=== PATIENT | male | born 1960 | race Caucasian/White ===

== ENCOUNTER 2017-12-24 20:39 | Inpatient (IN) | payer MEDICARE, OTHER ==
[2017-12-24] MEDS: ASPIRIN 325 MG TAB PO (21:55)
[2017-12-24] MEDS: morphine 4 MG/ML VIAL IV (21:55)
[2017-12-24] MEDS: ONDANSETRON 4 MG INJ IV ×2 (21:55→23:24)
[2017-12-24 22:30] LABS: ADD MAN DIFF? NO
[2017-12-24 22:33] LABS: BASOPHILS % 0.6 % (0.0-2.0); EOSINOPHILS % 0.4 % (0.0-7.0); HEMATOCRIT 39.5 % (42.0-52.0); HEMOGLOBIN 13.1 g/dl (14.0-18.0); LYMPHOCYTES # 1.6 10^3/ul (0.8-2.9); LYMPHOCYTES % 32.1 % (15.0-51.0); MEAN CORPUSCULAR HEMOGLOBIN 29.5 pg (29.0-33.0); MEAN CORPUSCULAR HGB CONC 33.2 g/dl (32.0-37.0); MEAN PLATELET VOLUME 11.9 fl (7.4-10.4); MONOCYTE # 0.5 10^3/ul (0.3-0.9); MONOCYTES % 10.2 % (0.0-11.0); NEUTROPHIL # 2.9 10^3/ul (1.6-7.5); NEUTROPHILS % 56.5 % (39.0-77.0); PLATELET COUNT 253 10^3/UL (140-415); RED BLOOD COUNT 4.44 10^6/ul (4.70-6.10); RED CELL DISTRIBUTION WIDTH 16.3 % (11.5-14.5)
[2017-12-24 22:33] LABS: WHITE BLOOD COUNT 5.1 10^3/ul (4.8-10.8)
[2017-12-24] MEDS: CARISOPRODOL 350 MG TAB PO (22:50)
[2017-12-24 22:51] LABS: ALANINE AMINOTRANSFERASE 32 IU/L (13-69); ALBUMIN/GLOBULIN RATIO 1.47; ALKALINE PHOSPHATASE 124 IU/L (42-121); ANION GAP 24 (8-16); ASPARTATE AMINO TRANSFERASE 31 IU/L (15-46); BILIRUBIN,INDIRECT 0.7 mg/dl (0-1.1); BILIRUBIN,TOTAL 0.7 mg/dl (0.2-1.3); BLOOD UREA NITROGEN 37 mg/dl (7-20); CALCIUM 9.8 mg/dl (8.4-10.2); CARBON DIOXIDE 25 mmol/L (21-31); CHLORIDE 99 mmol/L (97-110); CREATINE KINASE 97 IU/L (23-200); CREATININE 2.38 mg/dl (0.61-1.24); GLUCOSE 77 mg/dl (70-220); LIPASE 46 U/L (23-300); POTASSIUM 4.5 mmol/L (3.5-5.1); SODIUM 143 mmol/L (135-144); TOTAL PROTEIN 8.4 g/dl (6.1-8.1)
[2017-12-24 22:53] LABS: INR 1.61; PROTIME 19.5 Sec (11.9-14.9); PT RATIO 1.5
[2017-12-24 23:00] LABS: B-TYPE NATRIURETIC PEPTIDE 2690 PG/ML (0-125); CK-MB 7.79 ng/ml (0.0-2.4)
[2017-12-24] MEDS ORDERED: ACETAMINOPHEN 325 MG TAB PO (23:00)
[2017-12-24] MEDS: HYDROmorphONE 0.5 MG/0.5 ML SYG IV (23:24)
[2017-12-25] MEDS ORDERED: DIPHENHYDRAMINE 25 MG CAP PO (01:30)
[2017-12-25] MEDS: DIPHENHYDRAMINE 50 MG CAP PO (01:54)
[2017-12-25] MEDS ORDERED: NACL 0.9% 3 ML SYG IV (05:00)
[2017-12-25] MEDS ORDERED: ALBUTEROL/IPRATROPIUM (NEB) 3 ML AMP HHN (05:00)
[2017-12-25] MEDS ORDERED: ACETAMINOPHEN 325 MG TAB PO (05:00)
[2017-12-25] MEDS: morphine 2 MG INJ IV ×3 (05:38→21:18)
[2017-12-25] MEDS: ONDANSETRON 4 MG INJ IV (05:38)
[2017-12-25] MEDS: GABAPENTIN 300 MG CAP PO ×3 (09:00→21:17)
[2017-12-25] MEDS ORDERED: VANCOMYCIN IV PER PHARMACY XX (09:00)
[2017-12-25] MEDS: ENOXAPARIN 40 MG/0.4 ML SYG SC (09:18)
[2017-12-25] MEDS: ASPIRIN 81 MG TAB PO (09:18)
[2017-12-25] MEDS: FUROSEMIDE 20 MG TAB PO ×2 (09:19→21:17)
[2017-12-25] MEDS: HYDROmorphONE 0.5 MG/0.5 ML SYG IV (09:19)
[2017-12-25] MEDS: POTASSIUM CHLORIDE (SR) 20 MEQ TAB PO (09:19)
[2017-12-25 16:29] LABS: ADD MAN DIFF? NO
[2017-12-25 16:32] LABS: WHITE BLOOD COUNT 3.8 10^3/ul (4.8-10.8)
[2017-12-25 16:32] LABS: BASOPHILS % 0.8 % (0.0-2.0); EOSINOPHILS # 0.1 10^3/ul (0.0-0.5); EOSINOPHILS % 1.6 % (0.0-7.0); HEMATOCRIT 39.3 % (42.0-52.0); HEMOGLOBIN 13.2 g/dl (14.0-18.0); LYMPHOCYTES # 1.4 10^3/ul (0.8-2.9); LYMPHOCYTES % 36.6 % (15.0-51.0); MEAN CORPUSCULAR HEMOGLOBIN 29.9 pg (29.0-33.0); MEAN CORPUSCULAR HGB CONC 33.6 g/dl (32.0-37.0); MEAN CORPUSCULAR VOLUME 88.9 fl (82.0-101.0); MEAN PLATELET VOLUME 11.6 fl (7.4-10.4); MONOCYTE # 0.5 10^3/ul (0.3-0.9); MONOCYTES % 11.8 % (0.0-11.0); NEUTROPHIL # 1.9 10^3/ul (1.6-7.5); NEUTROPHILS % 48.9 % (39.0-77.0); PLATELET COUNT 233 10^3/UL (140-415); RED BLOOD COUNT 4.42 10^6/ul (4.70-6.10); RED CELL DISTRIBUTION WIDTH 16.2 % (11.5-14.5)
[2017-12-25] MEDS: HYDROCODONE/APAP (5/325) TAB PO (16:35)
[2017-12-25 17:02] LABS: ALANINE AMINOTRANSFERASE 31 IU/L (13-69); ALBUMIN 4.8 g/dl (3.3-4.9); ALBUMIN/GLOBULIN RATIO 1.41; ALKALINE PHOSPHATASE 123 IU/L (42-121); ANION GAP 20 (8-16); ASPARTATE AMINO TRANSFERASE 32 IU/L (15-46); BILIRUBIN,INDIRECT 0.4 mg/dl (0-1.1); BILIRUBIN,TOTAL 0.4 mg/dl (0.2-1.3); BLOOD UREA NITROGEN 39 mg/dl (7-20); CALCIUM 9.5 mg/dl (8.4-10.2); CARBON DIOXIDE 24 mmol/L (21-31); CHLORIDE 102 mmol/L (97-110); CREATININE 1.53 mg/dl (0.61-1.24); GLUCOSE 70 mg/dl (70-220); PHOSPHORUS 4.1 mg/dl (2.5-4.9); POTASSIUM 4.1 mmol/L (3.5-5.1); SODIUM 142 mmol/L (135-144); TOTAL PROTEIN 8.2 g/dl (6.1-8.1)
[2017-12-25 19:13] LABS: CREATINE KINASE 47 IU/L (23-200)
[2017-12-25 19:24] LABS: CK INDEX 11.6
[2017-12-25 19:25] LABS: CK-MB 5.47 ng/ml (0.0-2.4); TROPONIN-I < 0.012 ng/ml (0.00-0.12)
[2017-12-26] MEDS: POTASSIUM CHLORIDE (SR) 20 MEQ TAB PO (09:00)
[2017-12-26] MEDS: GABAPENTIN 300 MG CAP PO ×3 (09:00→21:00)
[2017-12-26] MEDS: ASPIRIN 81 MG TAB PO (09:00)
[2017-12-26] MEDS: ENOXAPARIN 40 MG/0.4 ML SYG SC (09:00)
[2017-12-26] MEDS: FUROSEMIDE 20 MG TAB PO ×2 (09:00→21:00)
[2017-12-26 13:59] LABS: ADD MAN DIFF? NO
[2017-12-26 14:03] LABS: WHITE BLOOD COUNT 3.7 10^3/ul (4.8-10.8)
[2017-12-26 14:03] LABS: BASOPHILS % 1.1 % (0.0-2.0); EOSINOPHILS # 0.1 10^3/ul (0.0-0.5); EOSINOPHILS % 1.9 % (0.0-7.0); HEMATOCRIT 39.1 % (42.0-52.0); HEMOGLOBIN 12.6 g/dl (14.0-18.0); LYMPHOCYTES # 1.1 10^3/ul (0.8-2.9); LYMPHOCYTES % 30.4 % (15.0-51.0); MEAN CORPUSCULAR HGB CONC 32.2 g/dl (32.0-37.0); MEAN CORPUSCULAR VOLUME 90.1 fl (82.0-101.0); MEAN PLATELET VOLUME 11.6 fl (7.4-10.4); MONOCYTE # 0.4 10^3/ul (0.3-0.9); MONOCYTES % 10.3 % (0.0-11.0); NEUTROPHIL # 2.1 10^3/ul (1.6-7.5); PLATELET COUNT 215 10^3/UL (140-415); RED BLOOD COUNT 4.34 10^6/ul (4.70-6.10); RED CELL DISTRIBUTION WIDTH 15.9 % (11.5-14.5)
[2017-12-26 14:26] LABS: CHOLESTEROL 100 mg/dl (100-200)
[2017-12-26 14:26] LABS: CHOL/HDL RATIO 1.8 RATIO; HDL CHOLESTEROL 53 mg/dl (28-71); LDL CHOLESTEROL,CALCULATED 34 mg/dl; TRIGLYCERIDES 67 mg/dl (0-149)
[2017-12-26 14:32] LABS: CREATINE KINASE 54 IU/L (23-200)
[2017-12-26 14:34] LABS: ALANINE AMINOTRANSFERASE 30 IU/L (13-69); ALBUMIN 4.4 g/dl (3.3-4.9); ALBUMIN/GLOBULIN RATIO 1.37; ALKALINE PHOSPHATASE 128 IU/L (42-121); ANION GAP 18 (8-16); ASPARTATE AMINO TRANSFERASE 30 IU/L (15-46); BILIRUBIN,INDIRECT 0.5 mg/dl (0-1.1); BILIRUBIN,TOTAL 0.5 mg/dl (0.2-1.3); BLOOD UREA NITROGEN 30 mg/dl (7-20); CALCIUM 9.3 mg/dl (8.4-10.2); CARBON DIOXIDE 22 mmol/L (21-31); CHLORIDE 104 mmol/L (97-110); CREATININE 0.95 mg/dl (0.61-1.24); GLUCOSE 80 mg/dl (70-220); MAGNESIUM 1.9 mg/dl (1.7-2.5); POTASSIUM 4.1 mmol/L (3.5-5.1); SODIUM 140 mmol/L (135-144); TOTAL PROTEIN 7.6 g/dl (6.1-8.1)
[2017-12-26 14:40] LABS: CK INDEX 9.8
[2017-12-26 14:43] LABS: CK-MB 5.27 ng/ml (0.0-2.4); TROPONIN-I < 0.012 ng/ml (0.00-0.12)
[2017-12-26] MEDS: HYDROCODONE/APAP (10/325) TAB PO (22:26)
[2017-12-27] MEDS: HYDROCODONE/APAP (10/325) TAB PO ×5 (02:07→19:06)
[2017-12-27 08:46] LABS: ADD MAN DIFF? NO
[2017-12-27 08:54] LABS: WHITE BLOOD COUNT 5.4 10^3/ul (4.8-10.8)
[2017-12-27 08:54] LABS: BASOPHILS % 0.6 % (0.0-2.0); EOSINOPHILS # 0.1 10^3/ul (0.0-0.5); EOSINOPHILS % 1.5 % (0.0-7.0); HEMATOCRIT 38.5 % (42.0-52.0); HEMOGLOBIN 12.9 g/dl (14.0-18.0); LYMPHOCYTES # 1.6 10^3/ul (0.8-2.9); LYMPHOCYTES % 28.7 % (15.0-51.0); MEAN CORPUSCULAR HEMOGLOBIN 29.5 pg (29.0-33.0); MEAN CORPUSCULAR HGB CONC 33.5 g/dl (32.0-37.0); MEAN CORPUSCULAR VOLUME 88.1 fl (82.0-101.0); MEAN PLATELET VOLUME 11.5 fl (7.4-10.4); MONOCYTE # 0.5 10^3/ul (0.3-0.9); NEUTROPHIL # 3.2 10^3/ul (1.6-7.5); PLATELET COUNT 232 10^3/UL (140-415); RED BLOOD COUNT 4.37 10^6/ul (4.70-6.10); RED CELL DISTRIBUTION WIDTH 15.9 % (11.5-14.5)
[2017-12-27] MEDS: POTASSIUM CHLORIDE (SR) 20 MEQ TAB PO (09:00)
[2017-12-27] MEDS: ASPIRIN 81 MG TAB PO (09:00)
[2017-12-27] MEDS: FUROSEMIDE 20 MG TAB PO ×2 (09:00→21:00)
[2017-12-27] MEDS: ENOXAPARIN 40 MG/0.4 ML SYG SC (09:00)
[2017-12-27 09:15] LABS: ANION GAP 18 (8-16); BLOOD UREA NITROGEN 31 mg/dl (7-20); CALCIUM 9.3 mg/dl (8.4-10.2); CARBON DIOXIDE 22 mmol/L (21-31); CHLORIDE 106 mmol/L (97-110); CREATININE 1.06 mg/dl (0.61-1.24); GLUCOSE 85 mg/dl (70-220); MAGNESIUM 1.9 mg/dl (1.7-2.5); PHOSPHORUS 3.2 mg/dl (2.5-4.9); POTASSIUM 4.5 mmol/L (3.5-5.1); SODIUM 141 mmol/L (135-144)
[2017-12-27] MEDS: GABAPENTIN 300 MG CAP PO ×3 (09:36→21:23)
[2017-12-27] MEDS ORDERED: morphine 2 MG INJ IV (23:00)
[2017-12-28] MEDS: HYDROCODONE/APAP (10/325) TAB PO ×5 (00:01→16:57)
[2017-12-28] MEDS: ZOLPIDEM 5 MG TAB PO (00:01)
[2017-12-28] MEDS: GABAPENTIN 300 MG CAP PO ×3 (08:51→21:40)
[2017-12-28] MEDS: POTASSIUM CHLORIDE (SR) 20 MEQ TAB PO (08:51)
[2017-12-28] MEDS: ASPIRIN 81 MG TAB PO (08:51)
[2017-12-28] MEDS: FUROSEMIDE 20 MG TAB PO ×2 (08:52→21:43)
[2017-12-28] MEDS: ENOXAPARIN 40 MG/0.4 ML SYG SC (08:56)
[2017-12-28] MEDS: CEFAZOLIN 1 GM/50 ML (PMX) 50 ML IVPB (13:30)
[2017-12-28 21:30] LABS: PROTIME 16.4 Sec (11.9-14.9); PT RATIO 1.3
[2017-12-28] MEDS: morphine (ER) 30 MG TAB PO (21:43)
[2017-12-29] MEDS: HYDROCODONE/APAP (10/325) TAB PO ×3 (01:12→12:08)
[2017-12-29] MEDS ORDERED: CEFAZOLIN 1 GM INJ (07:00)
[2017-12-29 07:56] LABS: ADD MAN DIFF? NO
[2017-12-29] MEDS: GABAPENTIN 300 MG CAP PO ×3 (07:57→19:49)
[2017-12-29] MEDS: POTASSIUM CHLORIDE (SR) 20 MEQ TAB PO (07:57)
[2017-12-29] MEDS: ASPIRIN 81 MG TAB PO (07:57)
[2017-12-29] MEDS: FUROSEMIDE 20 MG TAB PO ×2 (07:59→19:50)
[2017-12-29] MEDS: morphine (ER) 30 MG TAB PO ×2 (08:00→19:51)
[2017-12-29 08:05] LABS: WHITE BLOOD COUNT 4.1 10^3/ul (4.8-10.8)
[2017-12-29 08:05] LABS: BASOPHILS % 0.7 % (0.0-2.0); EOSINOPHILS # 0.1 10^3/ul (0.0-0.5); EOSINOPHILS % 2.7 % (0.0-7.0); HEMATOCRIT 35.1 % (42.0-52.0); HEMOGLOBIN 11.6 g/dl (14.0-18.0); LYMPHOCYTES # 1.4 10^3/ul (0.8-2.9); MEAN CORPUSCULAR HEMOGLOBIN 29.6 pg (29.0-33.0); MEAN CORPUSCULAR VOLUME 89.5 fl (82.0-101.0); MEAN PLATELET VOLUME 11.5 fl (7.4-10.4); MONOCYTE # 0.4 10^3/ul (0.3-0.9); MONOCYTES % 10.8 % (0.0-11.0); NEUTROPHIL # 2.1 10^3/ul (1.6-7.5); NEUTROPHILS % 50.8 % (39.0-77.0); PLATELET COUNT 166 10^3/UL (140-415); RED BLOOD COUNT 3.92 10^6/ul (4.70-6.10); RED CELL DISTRIBUTION WIDTH 15.9 % (11.5-14.5)
[2017-12-29 08:47] LABS: ANION GAP 19 (8-16); BLOOD UREA NITROGEN 34 mg/dl (7-20); CALCIUM 9.3 mg/dl (8.4-10.2); CARBON DIOXIDE 22 mmol/L (21-31); CHLORIDE 106 mmol/L (97-110); CREATININE 0.88 mg/dl (0.61-1.24); GLUCOSE 84 mg/dl (70-220); POTASSIUM 3.8 mmol/L (3.5-5.1); SODIUM 143 mmol/L (135-144)
[2017-12-29] MEDS: ENOXAPARIN 40 MG/0.4 ML SYG SC (09:00)
[2017-12-29] MEDS: LISINOPRIL 5 MG TAB PO (12:10)
[2017-12-29] MEDS: CARISOPRODOL 350 MG TAB PO (12:16)
[2017-12-29] MEDS: ONDANSETRON 4 MG INJ IV ×2 (12:22→19:49)
[2017-12-29] MEDS ORDERED: MIDAZOLAM 1 MG/ML 2 ML INJ (15:45)
[2017-12-29] MEDS ORDERED: KETAMINE 500 MG INJ (15:45)
[2017-12-29] MEDS ORDERED: FENTAnyl 50 MCG/ML VIAL (15:45)
[2017-12-29] MEDS ORDERED: LIDOCAINE 1%/EPI 30 ML INJ (15:54)
[2017-12-29] MEDS ORDERED: CEFAZOLIN 2 GM/50 ML (PMX) 50 ML IVPB (15:55)
[2017-12-29] MEDS: POLYMYXIN/BACITRACIN 1L IRRIG IRR (16:00)
[2017-12-29] MEDS: CEFAZOLIN 1 GM/50 ML (PMX) 50 ML IVPB (19:49)
[2017-12-29] MEDS: morphine 2 MG INJ IV (22:24)
[2017-12-30] MEDS: CEFAZOLIN 1 GM/50 ML (PMX) 50 ML IVPB ×4 (00:03→17:20)
[2017-12-30] MEDS: HYDROCODONE/APAP (10/325) TAB PO ×4 (00:03→17:29)
[2017-12-30] MEDS: morphine 2 MG INJ IV ×2 (02:02→21:40)
[2017-12-30] MEDS: CARISOPRODOL 350 MG TAB PO ×2 (02:53→11:18)
[2017-12-30 03:53] LABS: ADD UMIC YES; UR ASCORBIC ACID NEGATIVE (NEGATIVE); UR BILIRUBIN (Dip) NEGATIVE (NEGATIVE); UR BLOOD (Dip) NEGATIVE (NEGATIVE); UR CLARITY CLEAR (CLEAR); UR COLOR YELLOW (YELLOW); UR GLUCOSE (Dip) NEGATIVE (NEGATIVE); UR KETONES (Dip) NEGATIVE (NEGATIVE); UR LEUKOCYTE ESTERASE (Dip) TRACE Leu/ul (NEGATIVE); UR NITRITE (Dip) NEGATIVE (NEGATIVE); UR RBC 1 /HPF (0-5); UR SPECIFIC GRAVITY (Dip) 1.013 (1.003-1.030); UR TOTAL PROTEIN (Dip) NEGATIVE (NEGATIVE); UR UROBILINOGEN (Dip) NEGATIVE (NEGATIVE); UR WBC 4 /HPF (0-5)
[2017-12-30 03:58] LABS: SODIUM,URINE RANDOM 89 mmol/L (30-90)
[2017-12-30] MEDS: GABAPENTIN 300 MG CAP PO ×3 (08:14→21:40)
[2017-12-30] MEDS: ASPIRIN 81 MG TAB PO (08:15)
[2017-12-30] MEDS: LISINOPRIL 5 MG TAB PO (08:16)
[2017-12-30] MEDS: POTASSIUM CHLORIDE (SR) 20 MEQ TAB PO (08:16)
[2017-12-30] MEDS: FUROSEMIDE 20 MG TAB PO ×2 (08:16→21:40)
[2017-12-30] MEDS: morphine (ER) 30 MG TAB PO ×2 (08:17→21:41)
[2017-12-30] MEDS: ENOXAPARIN 40 MG/0.4 ML SYG SC (08:42)
[2017-12-30] MEDS: TIOTROPIUM 18 MCG CAPSULE INHA DEV INH (12:23)
[2017-12-30] MEDS ORDERED: VITAMIN A & D 5 GM OINT PACKET TOP (19:47)
[2017-12-31] MEDS: CEFAZOLIN 1 GM/50 ML (PMX) 50 ML IVPB ×5 (00:41→23:45)
[2017-12-31] MEDS: DIPHENHYDRAMINE 50 MG CAP PO (05:28)
[2017-12-31] MEDS: CARISOPRODOL 350 MG TAB PO ×2 (05:28→13:35)
[2017-12-31] MEDS: TIOTROPIUM 18 MCG CAPSULE INHA DEV INH (05:29)
[2017-12-31] MEDS: morphine 2 MG INJ IV ×2 (05:48→12:43)
[2017-12-31] MEDS: GABAPENTIN 300 MG CAP PO ×3 (08:19→20:48)
[2017-12-31] MEDS: POTASSIUM CHLORIDE (SR) 20 MEQ TAB PO (08:19)
[2017-12-31] MEDS: morphine (ER) 30 MG TAB PO ×2 (08:20→20:47)
[2017-12-31] MEDS: FUROSEMIDE 20 MG TAB PO ×2 (08:20→20:48)
[2017-12-31] MEDS: LISINOPRIL 5 MG TAB PO (08:21)
[2017-12-31] MEDS: ASPIRIN 81 MG TAB PO (08:21)
[2017-12-31] MEDS: ENOXAPARIN 40 MG/0.4 ML SYG SC (08:46)
[2017-12-31] MEDS: HYDROCODONE/APAP (10/325) TAB PO ×2 (13:35→17:46)
[2017-12-31] MEDS: QUETIAPINE 25 MG TAB PO (20:48)
[2018-01-01] MEDS: DIPHENHYDRAMINE 50 MG CAP PO (01:17)
[2018-01-01] MEDS: HYDROCODONE/APAP (10/325) TAB PO ×4 (02:49→22:55)
[2018-01-01] MEDS: CARISOPRODOL 350 MG TAB PO ×2 (02:49→11:42)
[2018-01-01] MEDS: CEFAZOLIN 1 GM/50 ML (PMX) 50 ML IVPB ×2 (06:08→11:42)
[2018-01-01] MEDS: TIOTROPIUM 18 MCG CAPSULE INHA DEV INH (08:55)
[2018-01-01] MEDS: GABAPENTIN 300 MG CAP PO ×3 (08:55→20:25)
[2018-01-01] MEDS: ASPIRIN 81 MG TAB PO (08:56)
[2018-01-01] MEDS: POTASSIUM CHLORIDE (SR) 20 MEQ TAB PO (08:56)
[2018-01-01] MEDS: morphine (ER) 30 MG TAB PO ×2 (08:59→21:00)
[2018-01-01] MEDS: FUROSEMIDE 20 MG TAB PO ×2 (09:00→22:55)
[2018-01-01] MEDS: LISINOPRIL 5 MG TAB PO (09:00)
[2018-01-01] MEDS: ENOXAPARIN 40 MG/0.4 ML SYG SC (09:08)
[2018-01-01 14:56] LABS: CREATININE, RANDOM URINE 49 mg/dL (20-370); MICROALBUMIN 2.5 mg/dL; MICROALBUMIN/CREATININE RATIO 51 (<30)
[2018-01-01] MEDS ORDERED: morphine LIQ (10 MG/5 ML) CUP PO (16:30)
[2018-01-01] MEDS: QUETIAPINE 25 MG TAB PO ×2 (20:25→22:54)
[2018-01-01] MEDS: RANOLAZINE (SR) 500 MG TAB PO (22:54)
[2018-01-02] MEDS: CARISOPRODOL 350 MG TAB PO ×3 (02:08→23:18)
[2018-01-02] MEDS ORDERED: VITAMIN A & D 5 GM OINT PACKET TOP (03:37)
[2018-01-02] MEDS: LEVOFLOXACIN 750 MG TABLET PO (05:17)
[2018-01-02] MEDS: HYDROCODONE/APAP (5/325) TAB PO (05:17)
[2018-01-02] MEDS ORDERED: POLYETHYLENE GLYCOL 17 GM PACKET PO (08:30)
[2018-01-02] MEDS ORDERED: SENNA TAB PO (08:30)
[2018-01-02] MEDS: LISINOPRIL 5 MG TAB PO ×2 (09:00→09:22)
[2018-01-02] MEDS: POTASSIUM CHLORIDE (SR) 20 MEQ TAB PO (09:21)
[2018-01-02] MEDS: GABAPENTIN 300 MG CAP PO ×3 (09:21→21:49)
[2018-01-02] MEDS: FUROSEMIDE 20 MG TAB PO ×2 (09:21→21:50)
[2018-01-02] MEDS: ASPIRIN 81 MG TAB PO (09:21)
[2018-01-02] MEDS: morphine (ER) 30 MG TAB PO ×2 (09:22→21:49)
[2018-01-02] MEDS: RANOLAZINE (SR) 500 MG TAB PO ×2 (09:23→21:00)
[2018-01-02] MEDS: ENOXAPARIN 40 MG/0.4 ML SYG SC (09:24)
[2018-01-02] MEDS: oxyCODONE 5 MG TAB PO ×2 (11:56→17:48)
[2018-01-02] MEDS: TIOTROPIUM 18 MCG CAPSULE INHA DEV INH (11:56)
[2018-01-02 14:36] LABS: ADD MAN DIFF? NO
[2018-01-02 14:38] LABS: BASOPHILS % 0.9 % (0.0-2.0); EOSINOPHILS # 0.1 10^3/ul (0.0-0.5); EOSINOPHILS % 2.5 % (0.0-7.0); HEMOGLOBIN 11.9 g/dl (14.0-18.0); LYMPHOCYTES # 1.2 10^3/ul (0.8-2.9); LYMPHOCYTES % 36.2 % (15.0-51.0); MEAN CORPUSCULAR HEMOGLOBIN 29.8 pg (29.0-33.0); MEAN CORPUSCULAR HGB CONC 33.1 g/dl (32.0-37.0); MEAN PLATELET VOLUME 12.1 fl (7.4-10.4); MONOCYTE # 0.3 10^3/ul (0.3-0.9); MONOCYTES % 9.1 % (0.0-11.0); NEUTROPHIL # 1.6 10^3/ul (1.6-7.5); PLATELET COUNT 182 10^3/UL (140-415); RED CELL DISTRIBUTION WIDTH 15.9 % (11.5-14.5)
[2018-01-02 14:38] LABS: WHITE BLOOD COUNT 3.2 10^3/ul (4.8-10.8)
[2018-01-02 14:59] LABS: ANION GAP 19 (8-16); BLOOD UREA NITROGEN 26 mg/dl (7-20); CARBON DIOXIDE 24 mmol/L (21-31); CHLORIDE 103 mmol/L (97-110); CREATININE 0.94 mg/dl (0.61-1.24); GLUCOSE 86 mg/dl (70-220); MAGNESIUM 1.8 mg/dl (1.7-2.5); PHOSPHORUS 3.6 mg/dl (2.5-4.9); POTASSIUM 4.4 mmol/L (3.5-5.1); SODIUM 142 mmol/L (135-144)
[2018-01-02 19:20] LABS: TROPONIN-I 0.015 ng/ml (0.00-0.12)
[2018-01-03] MEDS: oxyCODONE 5 MG TAB PO ×2 (04:20→15:20)
[2018-01-03] MEDS: LEVOFLOXACIN 750 MG TABLET PO (06:43)
[2018-01-03] MEDS: RANOLAZINE (SR) 500 MG TAB PO ×2 (09:00→20:15)
[2018-01-03] MEDS: LISINOPRIL 5 MG TAB PO (09:00)
[2018-01-03] MEDS: FUROSEMIDE 20 MG TAB PO (09:00)
[2018-01-03] MEDS: TIOTROPIUM 18 MCG CAPSULE INHA DEV INH (09:23)
[2018-01-03] MEDS: GABAPENTIN 300 MG CAP PO ×3 (09:23→20:15)
[2018-01-03] MEDS: ASPIRIN 81 MG TAB PO (09:24)
[2018-01-03] MEDS: CARISOPRODOL 350 MG TAB PO ×2 (09:24→20:15)
[2018-01-03] MEDS: POTASSIUM CHLORIDE (SR) 20 MEQ TAB PO (09:26)
[2018-01-03] MEDS: morphine (ER) 30 MG TAB PO ×2 (09:27→20:14)
[2018-01-03] MEDS: ENOXAPARIN 40 MG/0.4 ML SYG SC (09:57)
[2018-01-03] MEDS: FLUTICASONE 0.05% 16 GM NAS SPRAY NASAL ×2 (15:19→20:16)
[2018-01-03] MEDS: clonAZEPAM 0.5 MG TAB PO (20:58)
[2018-01-04] MEDS: CARISOPRODOL 350 MG TAB PO (05:06)
[2018-01-04] MEDS: oxyCODONE 5 MG TAB PO ×2 (05:06→12:12)
[2018-01-04] MEDS: LEVOFLOXACIN 750 MG TABLET PO (05:07)
[2018-01-04] MEDS: morphine (ER) 30 MG TAB PO ×2 (08:15→21:00)
[2018-01-04] MEDS: POTASSIUM CHLORIDE (SR) 20 MEQ TAB PO (08:16)
[2018-01-04] MEDS: RANOLAZINE (SR) 500 MG TAB PO ×2 (08:17→21:48)
[2018-01-04] MEDS: TIOTROPIUM 18 MCG CAPSULE INHA DEV INH (08:17)
[2018-01-04] MEDS: FLUTICASONE 0.05% 16 GM NAS SPRAY NASAL ×2 (08:17→21:47)
[2018-01-04] MEDS: ASPIRIN 81 MG TAB PO (08:17)
[2018-01-04] MEDS: GABAPENTIN 300 MG CAP PO ×3 (08:17→21:48)
[2018-01-04] MEDS: FUROSEMIDE 20 MG TAB PO (08:18)
[2018-01-04] MEDS: LISINOPRIL 5 MG TAB PO (08:19)
[2018-01-04] MEDS: ENOXAPARIN 40 MG/0.4 ML SYG SC (08:51)
[2018-01-04] MEDS: clonAZEPAM 0.5 MG TAB PO (14:37)
[2018-01-05] MEDS: oxyCODONE 5 MG TAB PO ×3 (06:35→22:25)
[2018-01-05] MEDS: LEVOFLOXACIN 750 MG TABLET PO (06:35)
[2018-01-05] MEDS: POTASSIUM CHLORIDE (SR) 20 MEQ TAB PO (09:00)
[2018-01-05] MEDS: ENOXAPARIN 40 MG/0.4 ML SYG SC (09:00)
[2018-01-05] MEDS: GABAPENTIN 300 MG CAP PO ×3 (09:00→20:26)
[2018-01-05] MEDS: ASPIRIN 81 MG TAB PO (09:01)
[2018-01-05] MEDS: LISINOPRIL 5 MG TAB PO (09:01)
[2018-01-05] MEDS: FUROSEMIDE 20 MG TAB PO (09:02)
[2018-01-05] MEDS: FLUTICASONE 0.05% 16 GM NAS SPRAY NASAL ×2 (09:04→22:21)
[2018-01-05] MEDS: TIOTROPIUM 18 MCG CAPSULE INHA DEV INH (09:08)
[2018-01-05] MEDS: CARISOPRODOL 350 MG TAB PO ×2 (09:09→20:33)
[2018-01-05] MEDS: RANOLAZINE (SR) 500 MG TAB PO ×2 (09:09→20:20)
[2018-01-05] MEDS: morphine (ER) 30 MG TAB PO ×2 (09:10→20:27)
[2018-01-05] MEDS: clonAZEPAM 0.5 MG TAB PO ×2 (12:41→22:21)
[2018-01-06] MEDS ORDERED: VITAMIN A & D 5 GM OINT PACKET TOP (04:52)
[2018-01-06] MEDS: oxyCODONE 5 MG TAB PO ×2 (04:55→12:02)
[2018-01-06 07:32] LABS: ANION GAP 17 (8-16); BLOOD UREA NITROGEN 32 mg/dl (7-20); CALCIUM 9.3 mg/dl (8.4-10.2); CARBON DIOXIDE 25 mmol/L (21-31); CHLORIDE 107 mmol/L (97-110); CREATININE 1.03 mg/dl (0.61-1.24); GLUCOSE 85 mg/dl (70-220); MAGNESIUM 1.8 mg/dl (1.7-2.5); PHOSPHORUS 3.8 mg/dl (2.5-4.9); SODIUM 145 mmol/L (135-144)
[2018-01-06] MEDS: LISINOPRIL 5 MG TAB PO (09:00)
[2018-01-06] MEDS: TIOTROPIUM 18 MCG CAPSULE INHA DEV INH (09:41)
[2018-01-06] MEDS: FLUTICASONE 0.05% 16 GM NAS SPRAY NASAL (09:42)
[2018-01-06] MEDS: ASPIRIN 81 MG TAB PO (09:42)
[2018-01-06] MEDS: POTASSIUM CHLORIDE (SR) 20 MEQ TAB PO (09:43)
[2018-01-06] MEDS: morphine (ER) 30 MG TAB PO (09:44)
[2018-01-06] MEDS: FUROSEMIDE 20 MG TAB PO (09:44)
[2018-01-06] MEDS: RANOLAZINE (SR) 500 MG TAB PO (09:45)
[2018-01-06] MEDS: GABAPENTIN 300 MG CAP PO (09:45)
[2018-01-06] MEDS: ENOXAPARIN 40 MG/0.4 ML SYG SC (09:47)
[2018-01-06] MEDS: CARISOPRODOL 350 MG TAB PO (09:57)
[2018-01-06] MEDS: clonAZEPAM 0.5 MG TAB PO (12:57)
== END 2018-01-06 13:26 | DRG 245 ==
LOC: E/R 20:39 → MS4 22:49
PROC: 0JH608Z Insertion of Defibrillator Generator into Chest Subcutaneous Tissue and Fascia, Open Approach (ICD-10-PCS; principal; 2017-12-29 13:30)
PROC: 0JPT0PZ Removal of Cardiac Rhythm Related Device from Trunk Subcutaneous Tissue and Fascia, Open Approach (ICD-10-PCS; 2017-12-29 13:30)
DX: I49.9 Cardiac arrhythmia, unspecified (principal); I13.0 Hypertensive heart and chronic kidney disease with heart failure and stage 1 through stage 4 chronic kidney disease, or unspecified chronic kidney disease; N17.9 Acute kidney failure, unspecified; I50.22 Chronic systolic (congestive) heart failure; J44.1 Chronic obstructive pulmonary disease with (acute) exacerbation; L03.115 Cellulitis of right lower limb; L03.116 Cellulitis of left lower limb; F11.20 Opioid dependence, uncomplicated; I42.8 Other cardiomyopathies; R55 Syncope and collapse; N18.9 Chronic kidney disease, unspecified; G89.29 Other chronic pain; M79.605 Pain in left leg; M79.604 Pain in right leg; G40.909 Epilepsy, unspecified, not intractable, without status epilepticus; D64.9 Anemia, unspecified; F41.9 Anxiety disorder, unspecified; I73.9 Peripheral vascular disease, unspecified; Z45.02 Encounter for adjustment and management of automatic implantable cardiac defibrillator; Z99.81 Dependence on supplemental oxygen; Z95.2 Presence of prosthetic heart valve; Z95.810 Presence of automatic (implantable) cardiac defibrillator; Z87.891 Personal history of nicotine dependence; Z76.5 Malingerer [conscious simulation]
CPT/HCPCS: 33262; 70450; 71045; 80048; 80053; 80061; 81001; 81003; 82043; 82550; 82553; 83690; 83735; 83880; 84100; 84155; 84300; 84443; 84484; 85025; 85610; 85730; 93005; 93306; 96372; 96374; 96375; 96376; 97110; 97116; 97162; 97530; 99285-25